=== PATIENT | male | born 1990 | race Caucasian/White ===

== ENCOUNTER 2020-11-28 14:07 | Emergency (ER) | payer BC ==
[~2020-11-28] VITALS: Ht 190.5 cm; Wt 113.4 kg
== END 2020-11-28 17:45 | disposition home or self-care (01) ==
LOC: ED 14:07
DX: R41.82 Altered mental status, unspecified (principal); Z87.891 Personal history of nicotine dependence
CPT/HCPCS: 36415; 70450; 71045; 80053; 81001; 85025; 85651; 93005; 93010; 99285-25; J7030

== ENCOUNTER 2021-02-26 08:46 | Observation (INO) | payer BC ==
[~2021-02-26] VITALS: Ht 190.5 cm; Wt 110.6 kg
[2021-02-26] MEDS ORDERED: IBU-200200 MG PO (09:53)
[2021-02-26] MEDS ORDERED: TYLENOL EXTRA500 MG PO (09:56)
[2021-02-26] MEDS ORDERED: ASPIRIN500 MG PO (09:56)
--- NOTE | 2021-02-26 14:40 | NUR ---
PT TO FLOOR VIA STRETCHER WITH DEEPTHI GIL. PT ABLE TO HOP ON ONE FOOT TO BED. BOOT PLACED ON FLOOR. BACK OF RIGHT LEG HOT AND TENDER. US AND XRAY WILL BE UP SHORTLY. VS STABLE.
--- NOTE | 2021-02-26 16:04 | NUR ---
PT REQUESTED PAIN MEDICATION AFTER HAVING ULTRASOUND ON RIGHT LOWER LEG. STATES IT WSA PRETTY PAINFUL AND THE TENSING UP CAUSED MORE PAIN IN HIS LUNGS.
--- NOTE | 2021-02-26 17:30 | NUR ---
SPOKE WITH PATIENT AND IN ROOM. HE IS EMPLOYED. DRIVES. THEY HAVE A FEW STAIRS IN HOME BUT HE HAS BEEN ABLE TO USE THEM WITH CRUTCHES. NORMALLY DOES NOT USE DME, BUT HAS WORK RELATED INJURY AND USING CRUTCHES NOW. HE DENIES FINANCIAL CONCERNS FOR MEDS/FOOD/UTILITIES. HE DID NOT HAVE INSURANCE CARD WITH HIM. TRIED TO FIND IT AT HOME WITH NO LUCK. DISCUSSED THEY MAY BE ABLE TO GET ON INSURANCE WEB SITE FOR THE INFORMATION. HE PULLED UP ON HIS PHONE AND FOUND HIS CARD INFO. HE GAVE ME ID # AND I WILL GET THIS TO ADMITTING. HIS INSURANCE IS THROUGH [facility]. ID#[id number]. DID BRING IN WORKERS COMP PAPERWORK. HAD HER KEEP IT WITH HER. THEY FEEL THEY HAVE HAD EVERYTHING EXPLAINED WELL SO FAR. WE DISCUSSED BLOOD THINNING MEDICINE CAN BE COSTLY SO THEY WILL NEED TO GET CARD FOR PHARMACY. SHE STATES SHE WILL GET THAT DONE. NO FURTHER QUESTIONS AT THIS TIME.
--- NOTE | 2021-02-26 17:34 | NUR ---
MED REC COMPLETE
--- NOTE | 2021-02-26 18:06 | NUR ---
PATIENT IN BED WATCHING TV. IN ROOM. VITALS AND I&O'S CHARTED. CALL LIGHT IN REACH. NO FURTHER NEEDS AT THIS TIME.
--- NOTE | 2021-02-26 19:10 | NUR ---
BEDSIDE REPORT RECEIVED FROM DEEPTHI AZEVEDO. pt RESTING IN BED, RATES PAIN 3-4/10 IN ABDOMEN. IVF INFUSING WNL ORDERED. CALL LIGHT IN REACH. IN ROOM.
--- NOTE | 2021-02-26 20:20 | NUR ---
SBA TO STAND TO USE URINAL. ABLE TO GET OUT OF BED, SLOWLY WITH LEFT SIDED CHEST PAIN. GETTING BACK INTO BED PAIN INCREASED, SHORT SHALLOW RESPIRATIONS, WITH SATS 98% BUT ABLE TO PUT SELF INTO BED SLOWLY. HOB ELEVATED. PT PRIMARY RN AWARE OF PAIN MED REQUEST.
--- NOTE | 2021-02-26 20:45 | NUR ---
CHECKED ON pt. RATES PAIN 6/10 IN RIGHT LEG. CSM INTACT BLE. PRN PAIN MEDICATION ADMINISTERED. VSS. SPO2 97% ON RA. IV SITE FLUSHED WNL WITH GOOD BLOOD RETURN. IVF INFUSING ORDERED. LUNG SOUNDS CLEAR, SHALLOW BREATHING, GUARDED DUE TO REPORTED PLEURITIC PAIN. ICE WATER REFILLED AND IN REACH. CALL LIGHT IN REACH.
--- NOTE | 2021-02-26 21:42 | NUR ---
tel #[phone] placed on patient, reading sinus sofía @ 53
--- NOTE | 2021-02-26 23:36 | NUR ---
ANSWERED CALL LIGHT. PATIENT ASKED FOR PAIN MED AND ICE WATER. PRIMARY RN NOTIFIED. ICE WATER PROVIDED.
--- NOTE | 2021-02-26 23:40 | NUR ---
CALL LIGHT ANSWERED. pt COMPLAINS OF PAIN 7/10 IN SIDES AFTER GETTING UP TO SIDE OF BED. PRN IV PAIN MEDICATION ADMINISTERED. NO ADDITIONAL NEEDS. CALL LIGHT IN REACH.
--- NOTE | 2021-02-27 01:50 | NUR ---
pt SLEEPING, AWAKENS TO RN ENTERING ROOM. STATES "PAIN IS 8/10 AFTER THE STARTLE AWAKE". PRN PO PAIN MEDICATION ADMINISTERED FOR PAIN IN SIDES AT THIS TIME. ASSESSMENT COMPLETE. LUNG SOUNDS CLEAR, DIMINISHED BILATERALLY IN BASES. CSM INTACT BLE. CALL LIGHT IN REACH. ICE WATER AND SPRITE PROVIDED.
--- NOTE | 2021-02-27 06:00 | NUR ---
pt SLEEPING, AWAKENS TO VOICE. VSS. pt RATES PAIN 2-3/10 "STARTING TO COME BACK". PRN PAIN MEDICATION ADMINISTERED REQUESTED. CONSULTANT RN NOW IN ROOM TO DRAW BLOOD. SPRITE AND ICE WATER PROVIDED. NO ADDITIONAL REQUESTS.
--- NOTE | 2021-02-27 07:10 | NUR ---
this rn received report from yun gonzalez. pt awake and states that that his pleuritic pain 3/10 and his left leg pain is 5/10, pt states that this is tolerable at this time.
--- NOTE | 2021-02-27 08:45 | NUR ---
this rn in pts room to give his morning meds and do assessment. pt states that he is a bit nauseous, this rn to provide pt with zofran, this rn discussed with pt that he might need some bowel meds due to pain meds pt is receiving. pts breath sounds are dim but appear to be clear at this time.
[2021-02-27] MEDS ORDERED: ELIQUIS5 MG PO (09:12)
[2021-02-27] MEDS ORDERED: HYDROCODON-ACE1 EAC8 PO (09:12)
--- NOTE | 2021-02-27 09:40 | NUR ---
Spoke with Bertrand and his Mirna. He is very concerned his admission fall under his Workmans comp. He has a workman's comp paper in his room. Informed I will fax to admitting to have them add, so this does not get billed to his insurance. ( documented this is related to first injury) Pt also in need of a PCP and has requested PFM yesterday from [facility], as he has used their walk in clinic. Called and spoke with Vicki. Pt assigned to Dr. Rosales and appt scheduled for March 09 at 1:30 and added to dc instructions. Workman's comp paper faxed to Lindsay in admitting and email sent to Saida Nicholson and Tasneem Taylor. Pt updated and plans on dc this am. He and deny other needs.
--- NOTE | 2021-02-27 10:44 | NUR ---
PATIENT GIVEN ONE NORCO FOR 7/10 PAIN WITH COUGH. PATIENT GIVEN ADDITIONAL PILLOW TO USE SPLINT WHEN COUGHING.
--- NOTE | 2021-02-27 10:50 | NUR ---
PATIENT IN BED WATCHING TV, VISITOR IN ROOM. PATIENT REFUSED AM CARE AND ORAL CARE THIS AM. CALL LIGHT IN REACH. NO FURTHER NEEDS AT THIS TIME.
== END 2021-02-27 11:24 | disposition home or self-care (01) ==
LOC: ED 08:46 → MS 08:48
PROVIDERS: ADMIT Internal Medicine; ATTEND Internal Medicine
DX: I26.99 Other pulmonary embolism without acute cor pulmonale (principal); I82.441 Acute embolism and thrombosis of right tibial vein; I82.451 Acute embolism and thrombosis of right peroneal vein; S82.61XA Displaced fracture of lateral malleolus of right fibula, initial encounter for closed fracture; W31.89XA Contact with other specified machinery, initial encounter; Y99.0 Civilian activity done for income or pay; Z87.891 Personal history of nicotine dependence; Z20.822 Contact with and (suspected) exposure to COVID-19
CPT/HCPCS: 71046; 71260; 73610; 80048; 80053; 83605; 85025; 85610; 85730; 93971; 96375; 99285-25; C9803; G0378; J1170; J1650; J2270; J2405; J7030; Q9967; U0003